=== PATIENT | male | born 1995 | race Caucasian/White ===

== ENCOUNTER 2022-05-31 20:10 | Emergency (ER) | payer MEDICAID ==
[~2022-05-31] VITALS: Ht 170.2 cm; Wt 70.5 kg
[2022-05-31 21:07] VITALS: BP 134/94
[2022-05-31] MEDS ORDERED: proparacaine 0.5% ophthalmic drops 15ml RIGHTEYE ONE (22:00)
[2022-05-31] MEDS ORDERED: ERYT1OIN6 RIGHTEYE (22:33)
[2022-05-31] MEDS ORDERED: erythromycin ophthalmic ointment 1gm tube RIGHTEYE ONE (22:35)
== END 2022-05-31 23:16 | disposition home or self-care (01) ==
LOC: ER 20:11
DX: T15.91XA Foreign body on external eye, part unspecified, right eye, initial encounter (principal); X58.XXXA Exposure to other specified factors, initial encounter; Y93.89 Activity, other specified; Y92.89 Other specified places as the place of occurrence of the external cause; Y99.8 Other external cause status
CPT/HCPCS: 99283

== ENCOUNTER 2025-08-26 10:21 | Emergency (ER) | payer MEDICAID ==
[~2025-08-26] VITALS: Ht 172.7 cm; Wt 79.6 kg
[2025-08-26 10:22] VITALS: TEMP 97.4
--- NOTE | 2025-08-26 10:51 | RADIOLOGY REPORT ---
INDICATION: Shoulder Pain TECHNIQUE: 4 radiographic views of the right shoulder were obtained. COMPARISON: None FINDINGS/IMPRESSION: No acute fracture or dislocations. No significant degenerative changes. No acute soft tissue abnormalities. No radiographic foreign body. Visualized portions of the lungs are clear.
[2025-08-26] MEDS ORDERED: IBUP-1984 PO (10:59)
--- NOTE | 2025-08-26 10:59 | Physician Documentation ---
History of Present Illness ~ Chief Complaint: Shoulder pain Stated Complaint: SHOULDER PAIN Time Seen by MD: 10:28 HPI 30-year-old right-hand dominant male who presents to the emergency department for evaluation of the right shoulder injury. He states he was working with a horse and feels that the horse may pulled on the roping have dislocated his right shoulder. In transferred to the hospital feels that the right shoulder spontaneous relocated on its own which resolved put large portion of his pain discomfort. There was no gross deformity of the right shoulder he is grossly neurologically intact radial median ulnar nerve. Reports that this has happened before with a spontaneous dislocation relocation. Tetanus within 5 years?: No Medication Reconciliation Allergies: Coded Allergies: No Known Allergies (Unverified , 08/26/25) Scheduled Ibuprofen* (Motrin*), 400 MG PO Q8H Past Medical History Past Medical History: No Pertinent History Past Surgical History: noncontributory Alcohol Use: Other Physical Exam Vital Signs: RN Vital Signs have been reviewed: Yes, Temperature: 97.4, Source: Temporal, Heart Rate: 86, Respiratory Rate: 20, BP: 156/102, Pulse Oximetry: 99, Weight: 79.600 Oxygen Flow Rate: 0 General Appearance: alert, WD/WN, mild distress EENT: PERRL/EOMI Neck: normal inspection Respiratory: lungs clear Cardiovascular: normal peripheral pulses Gastrointestinal: non-tender Shoulder: soft tissue tenderness, swelling Shoulder Well seated shoulder with reduced range of motion with internal rotation ext ernal rotation forward flexion abduction and adduction Skin: normal color, warm/dry Neurologic: oriented x4 Psychiatric: normal mood/affect Progress Results/Orders Results/Orders Orders - PENELOPE HOWARD PAC Ortho Orders (08/26/25 ) Vital Signs 08/26/25 10:22 Temp 97.4 Pulse 86 Resp 20 B/P (MAP) 156/102 Pulse Ox 99 O2 Flow Rate 0 Medical Decision Making Additional information obtaine: N/A Findings Examination and patient's history was consistent with traumatic dislocation with relocation prior to arrival in the emergency department. This is consistent with a prior history. This may indicate multidirectional instability requiring orthopedic follow up for evaluation with consideration of physical therapy and/or surgical repair. Patient x-rays in the emergency department reassuring for no fracture or dislocation Bankart lesion or Hill-Sachs lesion. Remains grossly neurologically intact. Placing shoulder immobilizer and discharged from the emergency department to follow up with primary care physician and/or local orthopedist. He has been provided ibuprofen for pain management. Differential Dx:Considerations: Include: AC separation, Adhesive capsulitis, arthritis, Bicipital tendonitis, Calcific tendonitis, Cervical disc disease, Contusion, Dislocation, Fracture: Humerus, Fracture: Scapula, Fracture: Clavicle, Gallbladder Disease, Hematoma, Impingement syndrome, Myocardial infarction, Neurovascular Injury, Rotator cuff injury, SC dislocation, Sprain, Subacromial bursitis, other Departure Disposition: HOME / SELF CARE / HOMELESS Impression: Primary Impression: Dislocation of shoulder region Qualified Codes: S43.004A - Unspecified dislocation of right shoulder joint, initial encounter Condition: Stable Discharge Instructions: Shoulder Dislocation, Shoulder Pain Additional Instructions: Likely you dislocated your shoulder then relocated at prior to arrival in the emergency department as evidenced by your history and examination. Please wear shoulder immobilizer for comfort and support make follow up appointment with the orthopedist for consideration of physical therapy or additional management as needed. Thank you for visiting [facility] Emergency Department. Referrals: NO PRIMARY CARE PROVIDER (PCP) Prescriptions Ibuprofen* (Motrin*) 400 Mg Tablet 400 MG PO Q8H, #20 TAB Prov: PENELOPE HOWARD 08/26/25 Education Educated: Patient Educated regarding: diagnosis, treatment, prognosis, need for follow up Signature Scribe Signature: . Attestation: . PENELOPE HOWARD Aug 26, 2025 10:59
[2025-08-26 11:10] VITALS: BP 149/99; PULSE 76; RESP 16; O2SAT 98
== END 2025-08-26 11:13 | disposition home or self-care (01) ==
LOC: ER 10:21
DX: S43.004A Unspecified dislocation of right shoulder joint, initial encounter (principal); Z79.899 Other long term (current) drug therapy; X50.9XXA Other and unspecified overexertion or strenuous movements or postures, initial encounter; Y93.89 Activity, other specified; Y92.89 Other specified places as the place of occurrence of the external cause; Y99.8 Other external cause status
CPT/HCPCS: 29105; 73030; 99283; A4565